=== PATIENT | female | born 1990 ===

== ENCOUNTER 2021-08-19 14:59 | Inpatient (IN) ==
[2021-08-19] MEDS ORDERED: ceFAZolin 2,000 MG/50 ML DUPLEX IV ONE (15:46)
[2021-08-19] MEDS ORDERED: CITRIC ACID/SODIUM CITRATE 30 ML UDCUP PO ONE (15:46)
[2021-08-19 16:15] LABS: Basophils # 0.1 10*3/uL (0.0-0.2); Basophils % 0.7 % (0.0-0.8); Eosinophils # 0.1 10*3/uL (0.0-0.87); Eosinophils % 0.9 % (0.00-10.9); Hematocrit 37.9 VOL% (35.7-47.0); Hemoglobin 12.9 GM/DL (12.0-16.0); Immature Granulocytes % 3.3 %; Immature Granulocytes Absolute 0.35 #; Lymphocytes # 2.8 10*3/uL (1.4-4.0); Lymphocytes % 25.7 % (21.3-54.2); Mean Corpuscular Volume 95.9 FL (87-102); Mean Platelet Volume 11.8 FL (9.6-12.0); Neutrophils % 60.4 % (38.7-73.9); Platelet Count 155 T/CUMM (130-400); Red Blood Count 3.95 MC/CUMM (3.8-5.5); Red Cell Distribution Width 13.2 % (9.3-17.3); White Blood Count 10.7 T/CUMM (4-12)
[2021-08-19 16:34] LABS: Albumin 2.7 G/DL (3.4-5.0); Bilirubin,Total 0.8 MG/DL (0.20-1.00); Calcium 8.6 MG/DL (8.5-10.1); Osmolality,Calculated 271.7 MOS/KG (273-304); Potassium 3.9 MMOL/L (3.5-5.1); Total Protein 6.4 G/DL (6.4-8.2)
[2021-08-19] MEDS ORDERED: FAMOTIDINE 20 MG/2 ML VIAL IV ONE ×2 (16:49→16:51)
[2021-08-19] MEDS: LACTATED RINGERS 1,000 ML IV SCH (16:57)
[2021-08-19] MEDS ORDERED: ONDANSETRON 4 MG/2 ML VIAL ONE ×2 (17:17→18:05)
[2021-08-19] MEDS ORDERED: BUPIVACAINE SPINAL 0.75% 2 ML AMP SPINAL ONE (17:17)
[2021-08-19] MEDS ORDERED: KETOROLAC 30 MG/1 ML VIAL ONE ×2 (18:05)
[2021-08-19] MEDS ORDERED: PHENYLEPHRINE 1 MG/10 ML SYRINGE IV ONE (18:11)
[2021-08-19 18:34] LABS: Cord Arterial Blood HCO3 21.5 MMOL/L
[2021-08-19 18:35] LABS: Cord Venous Blood HCO3 23.4 MMOL/L; Cord Venous Blood PO2 31.3
[2021-08-19] MEDS ORDERED: HYDROmorphone 2 MG/1 ML VIAL IV PRN (18:47)
[2021-08-19] MEDS ORDERED: ONDANSETRON 4 MG/2 ML VIAL IV PRN (18:47)
[2021-08-19] MEDS ORDERED: diphenhydrAMINE 50 MG/1 ML VIAL IV PRN (18:47)
[2021-08-19] MEDS ORDERED: hydrOXYzine HCL 25 MG/1 ML VIAL IM PRN (18:47)
[2021-08-19 18:50] LABS: Bacteria,Urine Occasional /HPF (Few); Bilirubin,Urine Negative (Negative); Blood, Urine Negative (Negative); Glucose,Urine (UA) Negative (Negative); Ketones,Urine 20 mg/dL (Negative); Nitrite,Urine Negative (Negative); Protein,Urine Negative; RBC,Urine <1 /HPF (0-4); Urine Appearance CLEAR (Clear); Urine Color Straw (Yellow); Urine Specific Gravity 1.005 (1.001-1.035); Urine Urobilinogen < 2.0 EU/DL (0.2-1.0)
[2021-08-19] MEDS ORDERED: OXYTOCIN/LR 20 UNIT/1,000 ML BAG IV ONE (19:43)
[2021-08-19] MEDS ORDERED: ACETAMINOPHEN 500 MG TABLET PO SCH (21:30)
[2021-08-19] MEDS ORDERED: INFLUENZA VIRUS VACCINE 0.5 ML SYRINGE IM ONE (22:55)
[2021-08-20] MEDS: LACTATED RINGERS 1,000 ML IV SCH (01:45)
[2021-08-20] MEDS: KETOROLAC 30 MG/1 ML VIAL IV SCH ×2 (01:45→09:03)
[2021-08-20 05:28] LABS: Basophils % 0.3 % (0.0-0.8); Eosinophils % 0.3 % (0.00-10.9); Hematocrit 32.5 VOL% (35.7-47.0); Hemoglobin 10.9 GM/DL (12.0-16.0); Immature Granulocytes Absolute 0.12 #; Lymphocytes # 1.8 10*3/uL (1.4-4.0); Lymphocytes % 14.9 % (21.3-54.2); Mean Corpuscular HGB Conc 33.5 GM/DL (32-36); Mean Corpuscular Volume 99.1 FL (87-102); Monocytes % 8.5 % (1.7-12.7); Platelet Count 145 T/CUMM (130-400); Red Blood Count 3.28 MC/CUMM (3.8-5.5); Red Cell Distribution Width 13.1 % (9.3-17.3)
[2021-08-20 06:03] LABS: Atypical Lymphocytes Few; Band Neutrophils 5 % (0-10); Lymphocytes 15 % (20-55); Nucleated Red Blood Cells 1 (0-5); Platelet Estimate Adequate; Segmented Neutrophils 71 % (50-85); Total Cells Counted 100
[2021-08-20] MEDS ORDERED: oxyCODONE/ACETAMINOPHEN 5-325 MG TABLET PO PRN (06:55)
[2021-08-20] MEDS: oxyCODONE/ACETAMINOPHEN 5-325 MG TABLET PO PRN ×3 (07:06→22:03)
[2021-08-20] MEDS ORDERED: SIMETHICONE CHEW 80 MG TABLET PO PRN (08:12)
[2021-08-20] MEDS: DOCUSATE SODIUM 100 MG CAPSULE PO SCH ×2 (09:01→22:03)
[2021-08-20] MEDS: MAGNESIUM HYDROXIDE SUSP 30 ML UDCUP PO PRN ×2 (09:01→22:03)
[2021-08-20] MEDS ORDERED: SIMETHICONE CHEW 125 MG TABLET PO PRN (18:47)
[2021-08-20] MEDS: IBUPROFEN 800 MG TABLET PO PRN (18:54)
[2021-08-20] MEDS ORDERED: BISACODYL 10 MG SUPP RECTAL PRN (22:36)
[2021-08-21] MEDS: IBUPROFEN 800 MG TABLET PO PRN ×2 (01:42→08:47)
[2021-08-21] MEDS: oxyCODONE/ACETAMINOPHEN 5-325 MG TABLET PO PRN ×2 (03:43→08:49)
[2021-08-21] MEDS: DOCUSATE SODIUM 100 MG CAPSULE PO SCH (08:46)
[2021-08-21 11:12] VITALS: BP 106/62
[2021-08-21] MEDS ORDERED: INFLUENZA VIRUS VACCINE 0.5 ML SYRINGE IM ONE (17:08)
== END 2021-08-21 14:15 | disposition home or self-care (01) | DRG 788 ==
LOC: N.LDOUT 14:59 → N.LD 15:01 → N.OB 22:15
PROVIDERS: ADMIT Obstetrics & Gynecology; ATTEND Obstetrics & Gynecology
PROC: LDCSECT (ICD-10-PCS; 2021-08-19 17:17)